=== PATIENT | female | born 1955 | race Caucasian/White ===

== ENCOUNTER 2018-06-06 09:30 | Day surgery (SDC) | payer MEDICARE ==
[~2018-06-06] VITALS: Ht 160 cm; Wt 86.2 kg
[~2018-06-06 09:30] MED LIST: ALBU8HFA2; AMLO5 PO; CITALOPRAM PO; CODACE30 PO; DALIRESP250 MCG PO; DICL75ER PO; FLUT1DIS5 INH; LOSARTAN PO; LOVA40 PO
[2018-06-06] MEDS ORDERED: CITA20 PO (09:47)
[2018-06-06] MEDS ORDERED: METO50 PO (09:50)
--- NOTE | 2018-06-06 10:04 | NUR ---
Ambulatory in Day Surgery History, Chart, Medications and Allergies reviewed before start of procedure. LS DIMINISHED T/O. PT REPORTS NORMALLY WEARS O2 WHEN SHE AMBULATES. C/O LIGHT SOB WITH AMBULATIONS. Patient states colon prep results clear. Patient States Post-Procedure ride home has been arranged.
--- NOTE | 2018-06-06 10:24 | NUR ---
06/06/18 [facility] 3-LEAD EKG REVIEWED WITH PHYSICIAN PRIOR TO START OF PROCEDURE.Patient to ENDO 1History, Chart, Medications and Allergies reviewed before start of procedure.MONITOR INTACT WITH CONTINUOUS PULSE OXIMETRY AND INTERMITTENT BP.O2 VIA N/C INTACT THROUGHOUT SEDATION/PROCEDURE. See Anesthesia record.
--- NOTE | 2018-06-06 11:13 | NUR ---
"DAY SURGERY RN | DISCHARGE VSS. A/O. No issues. Denies pain and nausea. Tolerating PO fluids. Discharge instructions given to patient with family present. Patient taken to front entrance for ride home by volunteer ( is peg driver)."
== END 2018-06-06 23:03 | disposition home or self-care (01) ==
LOC: ORSCMMR 09:30 → ORD 10:30 → ORSCMMR 10:30
PROVIDERS: Internal Medicine Gastroenterology
PROC: 0DBH8ZX Excision of Cecum, Via Natural or Artificial Opening Endoscopic, Diagnostic (ICD-10-PCS; principal; 2018-06-06 10:30)
PROC: 0DBK8ZX Excision of Ascending Colon, Via Natural or Artificial Opening Endoscopic, Diagnostic (ICD-10-PCS; principal; 2018-06-06 10:30)
DX: K62.5 Hemorrhage of anus and rectum (principal); R19.4 Change in bowel habit; D12.0 Benign neoplasm of cecum; D12.2 Benign neoplasm of ascending colon; K57.30 Diverticulosis of large intestine without perforation or abscess without bleeding; K64.8 Other hemorrhoids; K64.4 Residual hemorrhoidal skin tags; I10 Essential (primary) hypertension; K21.9 Gastro-esophageal reflux disease without esophagitis; F17.210 Nicotine dependence, cigarettes, uncomplicated; E66.9 Obesity, unspecified; Z68.33 Body mass index [BMI] 33.0-33.9, adult; Z79.899 Other long term (current) drug therapy
CPT/HCPCS: 88305; J2704; J7120

== ENCOUNTER → 2020-07-07 | Outpatient (CLI) | payer MEDICARE ==
[~2020-07-07] MED LIST changes: +CITA20 PO; +METO50 PO
== END | disposition home or self-care (01) ==
LOC: LAB SHORT 10:25 → LAB 10:25
DX: N39.0 Urinary tract infection, site not specified (principal)
CPT/HCPCS: 87086

== ENCOUNTER → 2020-08-13 | Outpatient (CLI) | payer MEDICARE, SELFPAY | END | disposition home or self-care (01) | LOC: LAB SHORT 07:28 | DX: L57.0 Actinic keratosis (principal) | CPT/HCPCS: 88305 ==

== ENCOUNTER → 2021-03-23 | Outpatient (CLI) | payer MEDICARE | END | disposition home or self-care (01) | LOC: LAB SHORT 19:13 | DX: N39.0 Urinary tract infection, site not specified (principal) | CPT/HCPCS: 87086 ==

== ENCOUNTER → 2021-09-15 | Outpatient (CLI) | payer MEDICARE | END | disposition home or self-care (01) | LOC: LAB SHORT 11:24 → LAB 11:24 | DX: N39.0 Urinary tract infection, site not specified (principal) | CPT/HCPCS: 87086 ==

== ENCOUNTER → 2021-10-23 | Outpatient (CLI) | payer MEDICARE | END | disposition home or self-care (01) | LOC: LAB 12:03 → LAB SHORT 12:03 | DX: N39.0 Urinary tract infection, site not specified (principal) | CPT/HCPCS: 87086 ==

== ENCOUNTER → 2022-03-10 | Outpatient (CLI) | payer MEDICARE ==
[2022-03-10 19:53] LABS: BASOPHILS ABSOLUTE AUTO 0.02 K/mm3 (0.00-0.23); BASOPHILS PERCENT AUTO 0 % (0-2); EOSINOPHILS ABSOLUTE AUTO 0.11 K/mm3 (0.00-0.68); EOSINOPHILS PERCENT AUTO 1 % (0-6); Hematocrit 38.5 % (33.0-51.0); Hemoglobin 11.5 g/dL (11.5-16.0); IMMATURE GRAN ABSOLUTE AUTO 0.02 K/mm3 (0.00-0.10); IMMATURE GRAN PERCENT AUTO 0 % (0-1); LYMPHOCYTES ABSOLUTE AUTO 1.91 K/mm3 (0.84-5.20); LYMPHOCYTES PERCENT AUTO 20 % (21-46); MONOCYTES ABSOLUTE AUTO 0.88 K/mm3 (0.16-1.47); MONOCYTES PERCENT AUTO 9 % (4-13); Mean Corpuscular HGB Conc 29.9 g/dL (31.5-36.5); Mean Corpuscular Volume 97 fL (80-100); Mean Platelet Volume 9.6 fL (9.1-12.4); NEUTROPHILS ABSOLUTE AUTO 6.61 K/mm3 (1.96-9.15); NEUTROPHILS PERCENT AUTO 69 % (41-73); Platelet Count 302 K/mm3 (150-400); RDW Coefficient Variation 13.1 % (11.7-14.2); Red Blood Cell Count 3.96 M/mm3 (3.80-5.20); White Blood Cell Count 9.55 K/mm3 (4.00-11.30)
[2022-03-10 22:08] LABS: Alanine Aminotransfer (ALT/SGP 32 U/L (12-78); Albumin, Blood 3.4 g/dL (3.4-5.0); Albumin/Globulin Ratio 0.9 (0.8-1.8); Alk Phos 80 U/L (50-136); Anion Gap 3 mmol/L (6-16); Aspartate Aminotrans (AST/SGOT 18 U/L (12-37); Bilirubin, Total 0.5 mg/dL (0.1-1.0); Blood Urea Nitrogen 16 mg/dL (8-24); Bun/Creatinine Ratio 21.3 (12.0-20.0); CO2, Blood 36 mmol/L (21-32); Calcium, Blood 9.3 mg/dL (8.5-10.1); Chloride, Blood 101 mmol/L (98-108); Cholesterol 177 mg/dL (50-200); Creatinine, Blood 0.75 mg/dL (0.40-1.00); Globulin, Blood 3.8 g/dL (2.2-4.0); Glomerular Filtration Rate 89 (60-); Glucose, Blood 99 mg/dL (70-99); HDL Cholesterol 59 mg/dL (>39); LDL/HDL RATIO 1.1; Low Density Lipoprotein Chol 66 mg/dL (0-110); Potassium, Blood 3.8 mmol/L (3.5-5.5); Sodium, Blood 140 mmol/L (136-145); Total Protein, Blood 7.2 g/dL (6.4-8.2); Triglycerides 260 mg/dL (30-160); Very Low Density Lipoprot Chol 52 mg/dL (6-32)
== END | disposition home or self-care (01) ==
LOC: LAB SHORT 11:27 → LAB 11:27
PROVIDERS: Family Medicine
DX: I11.0 Hypertensive heart disease with heart failure (principal); I50.9 Heart failure, unspecified; E78.5 Hyperlipidemia, unspecified
CPT/HCPCS: 80053; 80061; 83880; 85025

== ENCOUNTER 2022-03-16 09:32 | Inpatient (IN) | payer MEDICARE ==
[~2022-03-16] VITALS: Ht 160 cm; Wt 96.0 kg
[2022-03-16 10:50] LABS: BASOPHILS ABSOLUTE AUTO 0.03 K/mm3 (0.00-0.23); BASOPHILS PERCENT AUTO 0 % (0-2); EOSINOPHILS ABSOLUTE AUTO 0.01 K/mm3 (0.00-0.68); EOSINOPHILS PERCENT AUTO 0 % (0-6); IMMATURE GRAN ABSOLUTE AUTO 0.11 K/mm3 (0.00-0.10); IMMATURE GRAN PERCENT AUTO 1 % (0-1); LYMPHOCYTES ABSOLUTE AUTO 0.84 K/mm3 (0.84-5.20); LYMPHOCYTES PERCENT AUTO 4 % (21-46); MONOCYTES ABSOLUTE AUTO 1.08 K/mm3 (0.16-1.47); MONOCYTES PERCENT AUTO 6 % (4-13); Mean Corpuscular HGB 29.2 pg (26.0-34.0); Mean Corpuscular HGB Conc 29.7 g/dL (31.5-36.5); Mean Corpuscular Volume 98 fL (80-100); Mean Platelet Volume 9.3 fL (9.1-12.4); NEUTROPHILS ABSOLUTE AUTO 17.64 K/mm3 (1.96-9.15); NEUTROPHILS PERCENT AUTO 89 % (41-73); Platelet Count 260 K/mm3 (150-400); RDW Coefficient Variation 13.4 % (11.7-14.2); RDW Standard Deviation 48.2 fL (35.1-46.3); Red Blood Cell Count 3.77 M/mm3 (3.80-5.20); White Blood Cell Count 19.71 K/mm3 (4.00-11.30)
[2022-03-16] MEDS ORDERED: ATOR10 PO (11:25)
[2022-03-16] MEDS ORDERED: ROFL500T (11:25)
[2022-03-16] MEDS ORDERED: METO25ER PO (11:25)
[2022-03-16] MEDS ORDERED: OMEP20ER PO (11:26)
[2022-03-16 11:30] LABS: Albumin/Globulin Ratio 0.7 (0.8-1.8); Bilirubin, Total 1.4 mg/dL (0.1-1.0); Bun/Creatinine Ratio 16.2 (12.0-20.0); Calcium, Blood 9.1 mg/dL (8.5-10.1); Creatinine, Blood 0.8 mg/dL (0.40-1.00); Globulin, Blood 4.3 g/dL (2.2-4.0); Total Protein, Blood 7.3 g/dL (6.4-8.2)
[2022-03-16 12:31] LABS: Influenza A, PCR NEGATIVE (NEGATIVE); Influenza B, PCR NEGATIVE (NEGATIVE); Resp Syncytial Virus, PCR NEGATIVE (NEGATIVE); SARS-Cov-2 (COVID-19) PCR, MMC NEGATIVE (NEGATIVE)
[2022-03-16 14:28] LABS: Base Excess Venous 11.1 mmol/L; Bicarbonate Venous 33.2 mmol/L (24.0-30.0)
--- NOTE | 2022-03-16 19:11 | NUR ---
SHIFT SUMMARY. MS MACEDO WAS ADMITTED TO THE MEDICAL FLOOR FROM ER AT 1500HOURS. C/O COUGH, SOB WITH EXERTION, INCREASED OXYGEN REQUIREMENTS. ON 5L NASAL CANULA. CHEST PAIN ON COUGHING 3/10. ORIENTATED X4, STEADY GAIT UP TO THE BATHROOM WITH STAND BY ASSIST DUE TO IV TUBING AND O2 TUBING. LOOSE STOOLS, PT SAID SHE HAS LOOSE STOOLS WHENEVER SHE IS ON ANTIBIOTICS. ATE SUPPER. IVF NS INFUSING AT 100CC/HR. FAMILY AT BEDSIDE. BED LOW, CALL LIGHT IN REACH.
[2022-03-17 05:32] LABS: Hematocrit 32.6 % (33.0-51.0); Hemoglobin 9.7 g/dL (11.5-16.0); Mean Corpuscular HGB 29.1 pg (26.0-34.0); Mean Corpuscular HGB Conc 29.8 g/dL (31.5-36.5); Mean Corpuscular Volume 98 fL (80-100); Mean Platelet Volume 9.2 fL (9.1-12.4); Platelet Count 242 K/mm3 (150-400); RDW Coefficient Variation 13.4 % (11.7-14.2); RDW Standard Deviation 47.5 fL (35.1-46.3); Red Blood Cell Count 3.33 M/mm3 (3.80-5.20); White Blood Cell Count 17.49 K/mm3 (4.00-11.30)
[2022-03-17 06:03] LABS: Bun/Creatinine Ratio 23.4 (12.0-20.0); Calcium, Blood 8.7 mg/dL (8.5-10.1); Creatinine, Blood 0.73 mg/dL (0.40-1.00); Magnesium, Blood 2.1 mg/dL (1.6-2.4); Potassium, Blood 4.1 mmol/L (3.5-5.5)
--- NOTE | 2022-03-17 06:50 | NUR ---
SHIFT SUMMARY PT A&O X 4- PT SITTING UP ON SIDE OF BED DURING BEDSIDE REPORT- SPOUSE AND SON IN ROOM- PT CONCERNED ABOUT HOME MEDICATION- ROFLUMILAST SENT TO PHARMACY TO VERIFY- CALL TO DR. JENNINGS TO ORDER TO START TONIGHT - PT USES CALL LIGHT FOR SBA TO BR- 1 LITER NS ORDERED AND FINISHED INFUSING- MEDICATED WITH TYLENOL FOR DOMÍNGUEZ AT THE END OF SHIFT PT CURRENTLY ON 4L O2- BED LOW POSITION ,CALL LIGHT WITHIN
--- NOTE | 2022-03-17 14:40 | NUR ---
PATIENT TRANSFERRED TO ROOM 333 AT AROUND 1435. REPORT GIVEN TO MARLEEN WISEMAN RN. ALL PATIENT PERSONAL BELONGINGS WERE SENT WITH THE PATIENT.
--- NOTE | 2022-03-17 19:23 | NUR ---
PT ALERT RESTING IN BED. NO S/S OF ACUTE DISTRESS, SAFETY MEASURES IN PLACE. REPORT GIVEN TO ON COMING NURSE.
[2022-03-18 05:08] LABS: BASOPHILS ABSOLUTE AUTO 0.02 K/mm3 (0.00-0.23); BASOPHILS PERCENT AUTO 0 % (0-2); EOSINOPHILS PERCENT AUTO 0 % (0-6); Hematocrit 32.3 % (33.0-51.0); Hemoglobin 9.7 g/dL (11.5-16.0); IMMATURE GRAN ABSOLUTE AUTO 0.16 K/mm3 (0.00-0.10); IMMATURE GRAN PERCENT AUTO 1 % (0-1); LYMPHOCYTES ABSOLUTE AUTO 0.46 K/mm3 (0.84-5.20); LYMPHOCYTES PERCENT AUTO 3 % (21-46); MONOCYTES ABSOLUTE AUTO 0.46 K/mm3 (0.16-1.47); MONOCYTES PERCENT AUTO 3 % (4-13); Mean Corpuscular HGB 29.5 pg (26.0-34.0); Mean Corpuscular Volume 98 fL (80-100); Mean Platelet Volume 9.4 fL (9.1-12.4); NEUTROPHILS ABSOLUTE AUTO 15.77 K/mm3 (1.96-9.15); NEUTROPHILS PERCENT AUTO 94 % (41-73); Platelet Count 272 K/mm3 (150-400); RDW Coefficient Variation 13.2 % (11.7-14.2); RDW Standard Deviation 47.9 fL (35.1-46.3); Red Blood Cell Count 3.29 M/mm3 (3.80-5.20); White Blood Cell Count 16.87 K/mm3 (4.00-11.30)
[2022-03-18 05:36] LABS: Bun/Creatinine Ratio 25.7 (12.0-20.0); Calcium, Blood 8.9 mg/dL (8.5-10.1); Creatinine, Blood 0.78 mg/dL (0.40-1.00); Potassium, Blood 4.1 mmol/L (3.5-5.5)
--- NOTE | 2022-03-18 06:22 | NUR ---
AIRPLANE NAVIGATOR SUMMARY NO ACUTE EVENTS. PT IS A/OX3-4 W/SOME FORGETFULNESS. PLEASANT AND COOPERATIVE. PT ON 3L O2 NC; THIS IS BASELINE F/PT. PT INDEPENDENT T/BATHROOM; O2 CORD EXTENTION REACHES. PT ABLE TO MAKE NEEDS KNOWN AND CALLS APPROPRIATELY. VSS REVIEWED/STABLE. CALL LIGHT ACCESSIBLE. BED LOCKED/LOW.
--- NOTE | 2022-03-18 18:20 | NUR ---
SHIFT SUMMARY PATIENT ALERT AND ORIENTED THROUGHOUT SHIFT. INDEPENDENT IN ROOM TO BATHROOM. SUPP O2 VIA NC AT BASELINE OF 3L. LABORED BREATHING WITH EXERTION. MILD GROSS TREMORS NOTED. ROUTINE ABX AND STEROIDS. NEBS PER RT. TOLERATING DIET AND LIQUIDS. VOIDING WELL. REPORTS DIARRHEA WITH OCC CURRY BLOOD PER RECTUM. REPORTS HX HEMORRHOIDS. DISCUSSED WITH DR BURLESON WHO STATES IT IS LIKELY BLEEDING HEMORRHOIDS. LOVENOX HELD THIS SHIFT. EPIFOAM ORDERED AND PATIENT USING AFTER BOWEL MOVEMENTS FOR RELIEF OF RECTAL PAIN. AND SON BOTH VISITED DURING DAY SHIFT. PATIENT IMPROVING AND MAY BE ABLE TO DC HOME TOMORROW 03/19/22.
--- NOTE | 2022-03-19 04:43 | NUR ---
SHIFT SUMMARY PATIENT HAD NO ACUTE CHANGES. AXOX 4 AND INDEPENDENT IN ROOM. ON 3L O2 NC BASELINE. SOB W/EXERTION. REPORTS BREATHING IS IMPROVING. RT IN FOR MULTIPLE BREATHING TX. ON SCHEDULE SOLU-MEDROL. PIV REMAINS INTACT. DENIES PAIN AND N/V. VSS/AFEBRILE. COOPERATIVE WITH CARE. CALL LIGHT IN REACH. BED IN LOWEST POSITION. WILL CONTINUE TO MONITOR UNTIL DAY SHIFT NURSE ASSUMES CARE.
[2022-03-19 05:08] LABS: BASOPHILS ABSOLUTE AUTO 0.02 K/mm3 (0.00-0.23); BASOPHILS PERCENT AUTO 0 % (0-2); EOSINOPHILS PERCENT AUTO 0 % (0-6); Hematocrit 34.1 % (33.0-51.0); Hemoglobin 10.2 g/dL (11.5-16.0); IMMATURE GRAN ABSOLUTE AUTO 0.17 K/mm3 (0.00-0.10); IMMATURE GRAN PERCENT AUTO 1 % (0-1); LYMPHOCYTES ABSOLUTE AUTO 0.39 K/mm3 (0.84-5.20); LYMPHOCYTES PERCENT AUTO 3 % (21-46); MONOCYTES ABSOLUTE AUTO 0.51 K/mm3 (0.16-1.47); MONOCYTES PERCENT AUTO 4 % (4-13); Mean Corpuscular HGB Conc 29.9 g/dL (31.5-36.5); Mean Corpuscular Volume 97 fL (80-100); Mean Platelet Volume 9.1 fL (9.1-12.4); NEUTROPHILS ABSOLUTE AUTO 10.98 K/mm3 (1.96-9.15); NEUTROPHILS PERCENT AUTO 91 % (41-73); Platelet Count 355 K/mm3 (150-400); RDW Coefficient Variation 13.6 % (11.7-14.2); RDW Standard Deviation 48.4 fL (35.1-46.3); Red Blood Cell Count 3.52 M/mm3 (3.80-5.20); White Blood Cell Count 12.07 K/mm3 (4.00-11.30)
[2022-03-19 05:29] LABS: Bun/Creatinine Ratio 27.1 (12.0-20.0); Calcium, Blood 9.2 mg/dL (8.5-10.1); Creatinine, Blood 0.81 mg/dL (0.40-1.00); Potassium, Blood 3.9 mmol/L (3.5-5.5)
--- NOTE | 2022-03-19 07:59 | NUR ---
pt sitting up on the side of the bed with labored breaths, her 02 is hanging from one ear, checked sats, 72%, placed her back on cannula and turned o2 up until she got to 89%, encouraged breathing in through nose/out through mouth, she said she didn't realized the cannula was off, a/ox3, pleasant and coopertive with care, follows commands well, denies pain, just sob, lungs are dim tight t/l with exp wheezing t/o, no cough noted at this time, but reports productive cough of white/yellow sputum, hrr, trace edema noted to b/l le, ppp+1, cap refill <3sec, vs stable, afebrile, piv is clear and patent, btx4, abd round soft nontender, voids without diff, skin c/w/d, does have some bleeding hemmorhoids, brantew, up ad misha, capri, call light in reach.
--- NOTE | 2022-03-19 18:11 | NUR ---
pt states her bleeding and pain is slowing down, gave her an icepack to use and a frozen ob pad, she reports this evening it's doing better and doesn't want to put anything on it right now but will ask later if she needs, also gave her a sprits botter to clean herself with instead of wiping, she finds that to be easier, no further changes this shift, call light in reach.
[2022-03-20 03:16] LABS: Source, Urine Clean Catch
[2022-03-20 03:22] LABS: Appearance, Urine Hazy (Clear); Bilirubin, Urine Neg (Neg); Blood, Urine 5+ (Neg); Color, Urine Yellow (P-Yellow); Glucose Qualitative, Urine Neg (Neg); Ketones, Urine Neg (Neg); Leukocyte Esterase, Urine 2+ (Neg); Nitrite, Urine Neg (Neg); Protein, Urine 2+ (Neg); Urobilinogen, Urine NORM (Normal)
[2022-03-20 03:29] LABS: Bacteria Few /hpf; Red Blood Cells, Urine TNTC /hpf (0-2); Squamous Epithelial Cells Not Seen /hpf (Few)
[2022-03-20 05:48] LABS: BASOPHILS ABSOLUTE AUTO 0.03 K/mm3 (0.00-0.23); BASOPHILS PERCENT AUTO 0 % (0-2); EOSINOPHILS PERCENT AUTO 0 % (0-6); Hematocrit 30.6 % (33.0-51.0); Hemoglobin 9.3 g/dL (11.5-16.0); IMMATURE GRAN PERCENT AUTO 2 % (0-1); LYMPHOCYTES PERCENT AUTO 4 % (21-46); MONOCYTES ABSOLUTE AUTO 0.48 K/mm3 (0.16-1.47); MONOCYTES PERCENT AUTO 5 % (4-13); Mean Corpuscular HGB 29.2 pg (26.0-34.0); Mean Corpuscular HGB Conc 30.4 g/dL (31.5-36.5); Mean Corpuscular Volume 96 fL (80-100); Mean Platelet Volume 9.2 fL (9.1-12.4); NEUTROPHILS ABSOLUTE AUTO 7.92 K/mm3 (1.96-9.15); NEUTROPHILS PERCENT AUTO 88 % (41-73); Platelet Count 271 K/mm3 (150-400); RDW Coefficient Variation 13.4 % (11.7-14.2); RDW Standard Deviation 47.4 fL (35.1-46.3); Red Blood Cell Count 3.19 M/mm3 (3.80-5.20); White Blood Cell Count 9.03 K/mm3 (4.00-11.30)
--- NOTE | 2022-03-20 06:27 | NUR ---
PATIENT ALERT AND ORIENTED, INDEPENDENT, WHEEZING AND TIGHTNESS IN UPPER AND LOWER LOBES, 4L NC, 20 RFA SL, UA SENT AND CULTURE INDICATED. NO EVENTS OVERNIGHT
--- NOTE | 2022-03-20 09:00 | NUR ---
pt sitting up on the side of the bed, Dr. Carrillo in to see her, will be discharging today, she is a/ox3, pleasant and cooperative with care, follows commands well, denies pain, states she is feeling better, does look better, her eyes are brighter, lungs are dim with faint exp wheeze t/o, no cough noted at this time, currently on 5 liters 02 via n/c, resp even and unlabored at rest, does become labored with activity, hrr, does have some edema to r hand and arm, feet have +1, cap refill <3sec, vs stable, afebrile, piv site is clear and patent, btx4, she reports the loose stool is slowing a bit, and the bleeding is much better, skin c/w/d, capri marmolejo, call light in reach.
[2022-03-20] MEDS ORDERED: AZIT500 PO (14:10)
[2022-03-20] MEDS ORDERED: BENZ100A PO (14:11)
[2022-03-20] MEDS ORDERED: FURO20 PO (14:11)
[2022-03-20] MEDS ORDERED: GUAI600T33 PO (14:11)
[2022-03-20] MEDS ORDERED: HYDROCORTISONE-57 GM TOP (14:12)
[2022-03-20] MEDS ORDERED: IPRAT-ALBUT 0.5-3 ML INH (14:13)
[2022-03-20] MEDS ORDERED: CEFD300 PO (14:13)
[2022-03-20] MEDS ORDERED: PRED20 PO (14:14)
--- NOTE | 2022-03-20 15:34 | NUR ---
Pt has been discharged to home, went over instructions with her, she verbalized understanding, iv removed intact, Dr. Carrillo wrote a hard copy script for one med that they needed, the rest new meds were faxed to [facility], paperwork for her home 02 was faxed to [facility], left via wheelchair with all her belongings.
== END 2022-03-20 15:10 | disposition home or self-care (01) | DRG 871 ==
LOC: ER 09:32 → MEDS 13:23
PROVIDERS: Internal Medicine; Nurse Practitioner Acute Care; Physician Assistant; Student in an Organized Health Care Education/Training Program; ADMIT Hospitalist
PROC: 5A09357 Assistance with Respiratory Ventilation, Less than 24 Consecutive Hours, Continuous Positive Airway Pressure (ICD-10-PCS; principal; 2022-03-16)
PROC: 3E03329 Introduction of Other Anti-infective into Peripheral Vein, Percutaneous Approach (ICD-10-PCS; 2022-03-16)
DX: A41.9 Sepsis, unspecified organism (principal); J18.9 Pneumonia, unspecified organism; J96.02 Acute respiratory failure with hypercapnia; J96.21 Acute and chronic respiratory failure with hypoxia; J44.1 Chronic obstructive pulmonary disease with (acute) exacerbation; J44.0 Chronic obstructive pulmonary disease with (acute) lower respiratory infection; K92.1 Melena; K64.4 Residual hemorrhoidal skin tags; Z66 Do not resuscitate; I10 Essential (primary) hypertension; D63.8 Anemia in other chronic diseases classified elsewhere; E78.1 Pure hyperglyceridemia; K21.9 Gastro-esophageal reflux disease without esophagitis; F32.A Depression, unspecified; E66.9 Obesity, unspecified; R73.9 Hyperglycemia, unspecified; E78.00 Pure hypercholesterolemia, unspecified; M19.90 Unspecified osteoarthritis, unspecified site; Z20.822 Contact with and (suspected) exposure to COVID-19; Z88.2 Allergy status to sulfonamides; Z79.899 Other long term (current) drug therapy; Z79.52 Long term (current) use of systemic steroids; Z90.710 Acquired absence of both cervix and uterus; Z90.721 Acquired absence of ovaries, unilateral; Z98.890 Other specified postprocedural states; Z87.891 Personal history of nicotine dependence; Z99.81 Dependence on supplemental oxygen; Z68.37 Body mass index [BMI] 37.0-37.9, adult
CPT/HCPCS: 0241U; 36415; 71046; 80048; 80053; 81001; 82803; 83605; 83735; 84145; 84484; 85025; 85027; 87040; 87086; 93005; 93010; 94640; 94644; 94660; 94664; 94760; 94761; 96365; 96367; 96375; 99285-25; A9270; J0456; J0696; J1650; J1940; J2930; J3370; J7030; J7050

== ENCOUNTER → 2023-08-24 | Outpatient (CLI) | payer OTHER ==
[~2023-08-24] MED LIST changes: +ATOR10 PO; +AZIT500 PO; +BENZ100A PO; +CEFD300 PO; +FURO20 PO; +GUAI600T33 PO; +HYDROCORTISONE-57 GM TOP; +IPRAT-ALBUT 0.5-3 ML INH; +METO25ER PO; +OMEP20ER PO; +PRED20 PO; +ROFL500T
== END | disposition home or self-care (01) ==
LOC: LAB 09:15 → LAB SHORT 09:15
DX: N39.0 Urinary tract infection, site not specified (principal)
CPT/HCPCS: 87077; 87086; 87186